=== PATIENT | female | born 1995 | race Caucasian/White ===

== ENCOUNTER → 2018-08-08 | Outpatient (CLI) | payer OTHER ==
[2018-08-08 08:49] LABS: HCT 34.4 % (34.0-46.0); HGB 11.2 gm/dL (11.4-16.0); MCH 29.7 pg (25.0-35.0); MCHC 32.7 g/dL (31.0-37.0); MCV 90.7 fL (80.0-100.0); Mean Platelet Volume 7.2; Platelet Count 243 k/uL (150-450); RBC 3.79 m/uL (3.80-5.40); RDW 12.9 % (11.5-15.5); WBC 13.8 k/uL (3.8-10.6)
== END | disposition home or self-care (01) ==
LOC: LABWHC1 07:17
PROVIDERS: ATTEND Obstetrics & Gynecology
DX: Z34.82 Encounter for supervision of other normal pregnancy, second trimester (principal)
CPT/HCPCS: 36415; 82950; 85027

== ENCOUNTER 2018-11-12 06:00 | Inpatient (IN) | payer OTHER ==
[2018-11-12] MEDS ORDERED: LIDOCAINE 0.5% (PF) 5 MG/ML (50 ML SDV) SQ PRN (07:17)
[2018-11-12] MEDS ORDERED: OXYTOCIN 10 UNIT/ML 1 ML VIAL IM PRN (07:17)
[2018-11-12] MEDS ORDERED: METHYLERGONOVINE 0.2 MG/ML 1 ML AMP IM PRN (07:17)
[2018-11-12] MEDS ORDERED: TERBUTALINE 1 MG/ML VIAL SQ PRN (07:17)
[2018-11-12] MEDS ORDERED: CARBOPROST TROMETHAMINE 250 MCG/ML 1 ML AMP IM PRN (07:17)
[2018-11-12] MEDS ORDERED: OXYTOCIN 30 UNITS/500 ML NS 30 UNIT in SALINE 1 500ML.BAG IV SCH (07:30)
[2018-11-12 07:33] LABS: Basophils # (A) 0.1 k/uL (0-0.2); Basophils % (A) 1 %; Eosinophils # (A) 0.2 k/uL (0-0.7); Eosinophils % (A) 1 %; HCT 34.8 % (34.0-46.0); HGB 11.7 gm/dL (11.4-16.0); Lymphocytes # (A) 2.5 k/uL (1.0-4.8); Lymphocytes % (A) 21 %; MCHC 33.5 g/dL (31.0-37.0); MCV 83.7 fL (80.0-100.0); Mean Platelet Volume 7.4; Monocytes # (A) 0.6 k/uL (0-1.0); Monocytes % (A) 5 %; Neutrophils # (A) 8.1 k/uL (1.3-7.7); Neutrophils % (A) 69 %; Platelet Count 253 k/uL (150-450); RBC 4.16 m/uL (3.80-5.40); RDW 13.6 % (11.5-15.5); WBC 11.7 k/uL (3.8-10.6)
[2018-11-12] MEDS: LACTATED RINGERS 1,000 ML IV SCH ×2 (07:34→14:10)
[2018-11-12 07:54] VITALS: BMI 36.0
[2018-11-12] MEDS ORDERED: BUTORPHANOL 1 MG/ML 1 ML VIAL IV PRN (16:01)
[2018-11-12] MEDS ORDERED: CITRIC ACID-SODIUM CITRATE 15 ML CUP PO ONE (21:04)
[2018-11-12] MEDS ORDERED: ONDANSETRON 4 MG/2 ML VIAL ONE (21:21)
[2018-11-12] MEDS ORDERED: MORPHINE SULFATE (PF) 0.3 MG/0.3 ML SYR ONE (21:21)
[2018-11-12] MEDS ORDERED: OXYTOCIN 10 UNIT/ML 1 ML VIAL ONE (21:21)
[2018-11-12] MEDS ORDERED: KETOROLAC 30 MG/ML 1 ML VIAL ONE (21:21)
[2018-11-12] MEDS ORDERED: ePHEDrine SULFATE/0.9% NACL/PF 50 MG/5 ML SYRINGE IV ONE (21:21)
[2018-11-12] MEDS ORDERED: MIDAZOLAM 2 MG/2 ML VIAL ONE (21:21)
[2018-11-12] MEDS ORDERED: ACETAMINOPHEN TAB 325 MG TAB PO PRN (22:09)
[2018-11-12] MEDS ORDERED: diphenhydrAMINE 50 MG CAP PO PRN (22:09)
[2018-11-12] MEDS ORDERED: NALOXONE 0.4 MG/ML 1 ML VIAL IV PRN (22:09)
[2018-11-12] MEDS ORDERED: ONDANSETRON 4 MG/2 ML VIAL IVP PRN (22:09)
[2018-11-12] MEDS ORDERED: diphenhydrAMINE 50 MG/ML 1 ML VIAL IVP PRN ×2 (22:09)
[2018-11-12] MEDS ORDERED: KETOROLAC 30 MG/ML 1 ML VIAL IVP PRN (22:09)
[2018-11-12] MEDS ORDERED: diphenhydrAMINE 25 MG CAP PO PRN (22:09)
[2018-11-12] MEDS ORDERED: METOCLOPRAMIDE 5 MG/ML 2 ML VIAL IVP PRN (22:09)
[2018-11-12] MEDS ORDERED: ZOLPIDEM 5 MG TAB PO PRN (22:09)
--- NOTE | 2018-11-12 22:13 | P.HPOB ---
History of Present Illness H&P Date: 11/12/18 Chief Complaint: Intrauterine at term: Induction of labor Carmen is a 22-year-old at 39 weeks 6 days' gestation arise for induction of labor. Her Precis course was generally unremarkable and she was feeling well at this time. Pertinent labs include O+ blood type Rh generally was negative, rubella was immune, hepatitis B surface antigen and RPR were both negative. Group B strep was also negative. On physical exam vital signs are stable and afebrile. Heart regular, lungs clear, extremities without pain. Abdomen soft gravid uterus is noted. Edward 1 tracing is noted. She is dilated to approximately 2 cm 80% effaced -2 station artificial rupture membranes was performed and clear fluid is noted. Assessment intrauterine term. Plan expect spontaneous vaginal delivery. Past Medical History Past Medical History: No Reported History History of Any Multi-Drug Resistant Organisms: None Reported Past Surgical History: No Surgical Hx Reported Past Anesthesia/Blood Transfusion Reactions: No Reported Reaction Past Psychological History: No Psychological Hx Reported Smoking Status: Current every day smoker Past Alcohol Use History: None Reported Past Drug Use History: None Reported - Past Family History Father Family Medical History: Diabetes Mellitus Medications and Allergies Home Medications Medication Instructions Recorded Confirmed Type No Known Home Medications 10/23/15 11/12/18 History Allergies Allergy/AdvReac Type Severity Reaction Status Date / Time No Known Allergies Allergy Verified 11/12/18 07:16 Exam Osteopathic Statement: *. No significant issues noted on an osteopathic structural exam other than those noted in the History and Physical/Consult. Vital Signs Temp Pulse Resp BP Pulse Ox 11/12/18 07:06 97.0 F L 94 16 136/84 98 Intake and Output 11/12/18 11/12/18 11/12/18 06:59 14:59 22:59 Intake Total 1000 Balance 1000 Intake: Intake, IV Titration 1000 Amount Lactated Ringers 1,000 ml 1000 @ 125 mls/hr IV .Q8H TIFFANY Rx#:[id number] Other: # Voids 3 Weight 95.254 kg Results Result Diagrams: 11/12/18 07:12 Abnormal Lab Results - Last 24 Hours (Table) 11/12/18 Range/Units 07:12 WBC 11.7 H (3.8-10.6) k/uL Neutrophils # 8.1 H (1.3-7.7) k/uL
--- NOTE | 2018-11-12 22:20 | P.OP ---
Date of Procedure: 11/12/18 Preoperative Diagnosis: Intrauterine at term: Failure to descend Postoperative Diagnosis: Same with asynclitic presentation right occiput transverse Procedure(s) Performed: Primary low transverse section Anesthesia: spinal Surgeon: Jean Carlos Canseco Sales Coach #1: Kari Short Estimated Blood Loss (ml): 1,000 IV fluids (ml): 1,000 Urine output (ml): 200 Pathology: none sent Condition: stable Disposition: floor Operative Findings: Due to failure of descent and palpated asynclitism, a section has been ordered. Risks/benefits/alternatives to this procedure were discussed with the patient in detail and did include but were not limited to bleeding and infection, damage to bladder or bowel, vascular injuries, nerve injuries, ureteral damage. Female scores of 9 and 9 at one and 5 minutes Sherman and weight was 6 lbs. 6 oz. Description of Procedure: Patient was taken to the operating suite where a spinal anesthetic was found be adequate. She was prepped and draped in normal sterile fashion and placed in dorsal supine position with leftward tilt. Initially a Pfannenstiel skin incision was made and this incision was then carried through to underlying layer of the fascia was second knife. Fascia was then nicked in the midline and this opening was extended laterally with Luo scissors. Superior and inferior aspect of this incision were then grasped tented up and bluntly and sharply dissected off the rectus muscles. Rectus muscles were then in the midline and blunt dissection the peritoneum was performed. This opening was then extended superiorly and inferiorly with good visualization of both bowel bladder. Bladder blade was then placed and bladder flap identified and entered with Metzenbaum scissors. This opening was then extended across face uterus with Metzenbaum scissors. Bladder was then bluntly dissected out of the operative field. Knife was then used to incise uterus this opening was fully developed with a hemostat and then extended bluntly. Head was then atraumatically delivered from right occiput transverse position and slightly asynclitic. Once head was delivered mouth nares were bulb suctioned and the shoulders were easily delivered followed by the remainder the baby. Umbilical cord was then clamped cut usual fashion nursery personnel was present to assume care. Placenta was then delivered intact and Pitocin was added to the IV. Uterus was then exteriorized cleared of clots and debris and closed in 2 layers with 0 Vicryl suture. It was noted that during the initial closure there was bleeding from a venous sinus along the lateral left border of the uterus significant probably 600 mL of blood loss occurred from this opening initially [id number] sutures were attempted to control the bleeding we were able slow down significantly and then added pressure and then a running stitch that was finally able to go underneath and close off the sinus. There was approximately 4.5 cm hematoma in the posterior broad ligament this was monitored as well and did not appear to be enlarging. Once hemostasis was felt to be obtained in that area FloSeal was used over the top to gain excellent control over any bleeding from the venous sinus. The area was monitored for approximately 5 minutes and no further bleeding is noted during this time and no expansion of the hematoma was noted. Uterus was then reinserted the abdomen following suctioning of the posterior cul-de-sac. Again another 2 minutes was done monitoring the area reevaluation did not show any bleeding from the venous sinus area. Peritoneal layer was then closed with 3-0 Vicryl and just prior to finishing the closure another look was done at that venous sinus and no bleeding is noted. Once this was completed 0 Vicryl suture was used to close the fascial layer. One layer of 3-0 Vicryl was placed in deep subcuticular tissues reapproximate the skin and close space. Skin was then closed with 3-0 Vicryl subcuticular.
[2018-11-13 07:58] LABS: Basophils # (A) 0.1 k/uL (0-0.2); Basophils % (A) 1 %; Eosinophils # (A) 0.1 k/uL (0-0.7); Eosinophils % (A) 0 %; HCT 29.3 % (34.0-46.0); HGB 9.5 gm/dL (11.4-16.0); Lymphocytes # (A) 1.9 k/uL (1.0-4.8); Lymphocytes % (A) 10 %; MCH 27.5 pg (25.0-35.0); MCHC 32.5 g/dL (31.0-37.0); MCV 84.5 fL (80.0-100.0); Monocytes # (A) 0.8 k/uL (0-1.0); Monocytes % (A) 4 %; Neutrophils # (A) 15.9 k/uL (1.3-7.7); Neutrophils % (A) 84 %; Platelet Count 248 k/uL (150-450); RBC 3.47 m/uL (3.80-5.40); RDW 13.7 % (11.5-15.5)
--- NOTE | 2018-11-13 08:46 | P.PNOBGPC ---
Subjective - Subjective Principal diagnosis: Postop day 1 Interval history: Overall doing very well. We'll remove Butcher catheter and trying to ambulate later this morning. Clear yellow urine is noted in the catheter at this time. She voices no complaints. Hemoglobin was 9.5 this morning. Vital signs are stable and afebrile. Patient reports: Reports appetite normal : doing well Objective - Vital Signs Latest vital signs: Vital Signs Temp Pulse Resp BP Pulse Ox 11/13/18 08:00 98.1 F 65 16 104/47 11/13/18 04:00 98.4 F 70 16 114/70 98 11/13/18 00:23 98.4 F 76 16 115/60 98 11/12/18 23:53 66 16 114/59 98 11/12/18 23:23 16 117/59 98 11/12/18 23:08 98.5 F 86 16 118/59 11/12/18 22:53 75 16 118/55 98 11/12/18 22:38 68 18 110/55 98 11/12/18 22:23 98.4 F 78 18 134/60 96 Intake and Output 11/12/18 11/13/18 11/13/18 22:59 06:59 14:59 Output Total 400 Balance -400 Output: Urine 400 Other: # Voids 3 - Exam Lungs: bilateral: normal Chest: Normal S1, Normal S2 Extremities: Present: normal Abdomen: Present: normal appearance, soft. Absent: distention, tenderness Incision: Present: normal, dry, intact Uterus: Present: normal, firm - Labs Labs: Abnormal Lab Results - Last 24 Hours (Table) 11/13/18 Range/Units 06:32 WBC 19.0 H (3.8-10.6) k/uL RBC 3.47 L (3.80-5.40) m/uL Hgb 9.5 L D (11.4-16.0) gm/dL Hct 29.3 L (34.0-46.0) % Neutrophils # 15.9 H (1.3-7.7) k/uL
[2018-11-13] MEDS: SENNOSIDES-DOCUSATE SODIUM 1 EACH TAB PO SCH ×2 (09:36→19:33)
--- NOTE | 2018-11-13 13:32 | P.PN ---
Subjective Progress Note Date: 11/13/18 Patient was given intrathecal Duramorph on 11/12/2018 for . This morning, vital signs are stable. The patient denies itching, nausea, vomiting, urinary retention, excessive sedation, respiratory depression, or headache. Patient endorses mild back pain from needle placement but also denies new-onset fever, weakness, or bowel/bladder incontinence. Her pain score is: 0 Pain medications per primary service; please call back with any further questions. Sunny Huber MD Objective - Vital Signs Vital signs: Vital Signs Temp 98 F 11/13/18 12:00 Pulse 65 11/13/18 12:00 Resp 16 11/13/18 12:00 BP 96/53 11/13/18 12:00 Pulse Ox 98 11/13/18 04:00 Intake & Output 11/12/18 11/13/18 11/13/18 18:59 06:59 18:59 Intake Total 1000 Output Total 400 2400 Balance 1000 -400 -2400 Weight 95.254 kg Intake: Intake, IV Titration 1000 Amount Lactated Ringers 1,000 ml 1000 @ 125 mls/hr IV .Q8H TIFFANY Rx#:[id number] Output: Urine 400 2400 Uretheral (Butcher) 1200 Other 0 Other: # Voids 3 3 0 - Labs CBC & Chem 7: 11/13/18 06:32 Labs: Abnormal Lab Results - Last 24 Hours (Table) 11/13/18 Range/Units 06:32 WBC 19.0 H (3.8-10.6) k/uL RBC 3.47 L (3.80-5.40) m/uL Hgb 9.5 L D (11.4-16.0) gm/dL Hct 29.3 L (34.0-46.0) % Neutrophils # 15.9 H (1.3-7.7) k/uL
[2018-11-13] MEDS: IBUPROFEN 600 MG TAB PO PRN (19:33)
[2018-11-14] MEDS: HYDROcodone/APAP 7.5-325MG 1 EACH TAB PO PRN (00:41)
[2018-11-14] MEDS: LACTATED RINGERS 1,000 ML IV SCH ×2 (02:08→02:09)
[2018-11-14] MEDS: IBUPROFEN 600 MG TAB PO PRN ×3 (06:14→21:17)
[2018-11-14] MEDS: SENNOSIDES-DOCUSATE SODIUM 1 EACH TAB PO SCH ×2 (08:18→20:34)
--- NOTE | 2018-11-14 08:34 | P.PNOBGPC ---
Subjective - Subjective Principal diagnosis: Status post section postoperative day #2 Interval history: Patient is doing okay. She still has not passed any flatus yet. She is uncomfortable but feels like she could have a bowel movement any time. Pain is fairly well controlled with her pain medications. She is urinating without difficulty. Lochia is minimal. Baby is in the nursery on a bili blanket. Patient reports: Reports appetite normal, Reports voiding normally, Reports pain well controlled, Reports ambulating normally [place]: doing well Objective - Vital Signs Latest vital signs: Vital Signs Temp Pulse Resp BP 11/14/18 00:00 98.1 F 66 16 99/54 11/13/18 20:00 97.9 F 85 16 116/67 11/13/18 15:50 98.3 F 73 16 118/62 11/13/18 12:00 98 F 65 16 96/53 Intake and Output 11/13/18 11/14/18 11/14/18 22:59 06:59 14:59 Intake Total 500 Output Total 500 Balance -500 500 Intake: Oral 500 Output: Urine 500 Other: # Voids 1 1 - Exam Extremities: Present: normal. Absent: tenderness Abdomen: Present: normal appearance, soft (Faint bowel sounds 4). Absent: distention, tenderness Incision: Present: normal, dry, intact. Absent: erythematous Uterus: Present: normal, firm. Absent: tenderness Assessment and Plan Assessment: Status post section postoperative day #2 Plan: Patient is encouraged to ambulate more. Will continue was still softeners. Advised to slowly advance diet after flatus occurs.
[2018-11-14] MEDS: SIMETHICONE 80 MG CHEWABLE PO SCH (15:58)
[2018-11-15] MEDS: HYDROcodone/APAP 7.5-325MG 1 EACH TAB PO PRN (00:24)
[2018-11-15 00:58] VITALS: RESP 16
[2018-11-15] MEDS: SIMETHICONE 80 MG CHEWABLE PO SCH ×3 (00:58→09:38)
[2018-11-15] MEDS: IBUPROFEN 600 MG TAB PO PRN (07:50)
[2018-11-15 07:57] VITALS: BP 125/78; PULSE 70; TEMP 98.1
[2018-11-15] MEDS: SENNOSIDES-DOCUSATE SODIUM 1 EACH TAB PO SCH (07:57)
--- NOTE | 2018-11-15 13:12 | P.DS ---
Providers Date of admission: 11/12/18 06:58 Expected date of discharge: 11/15/18 Attending physician: Jean Carlos Canseco Primary care physician: Stated None - Discharge Diagnosis(es) (1) Status post primary low transverse section Current Visit: Yes Status: Acute Hospital Course: Pt presented for induction of labor. She underwent a primary low transverse c- section. Her po course was uncomplicated. She is ambulating and voiding without difficulty. Her incision is C/D/I. Tolerating reg diet and passing flatus. Denies N/V, F/C, CP, SOB, calf pain. She is discharged POD #3 in stable condition to follow up with Dr Canseco in 1 week. Plan - Discharge Summary New Discharge Prescriptions: New Ibuprofen [Motrin] 600 mg PO Q6HR PRN #30 tab PRN Reason: Mild Pain Or Fever >= 100.5 HYDROcodone/APAP 7.5-325MG [[place] 7.5-325] 1 each PO Q6H PRN #12 tab PRN Reason: Severe Pain Discharge Medication List HYDROcodone/APAP 7.5-325MG [[place] 7.5-325] 1 each PO Q6H PRN #12 tab 11/15/18 [Rx] Ibuprofen [Motrin] 600 mg PO Q6HR PRN #30 tab 11/15/18 [Rx] Follow up Appointment(s)/Referral(s): Jean Carlos Canseco DO [Doctor of Osteopathic Medicine] - 1 Week Discharge Disposition: HOME SELF-CARE
== END 2018-11-15 13:45 | disposition home or self-care (01) | DRG 788 ==
LOC: 4FBP 06:58
PROVIDERS: ADMIT Obstetrics & Gynecology; ATTEND Obstetrics & Gynecology
PROC: 10D00Z1 Extraction of Products of Conception, Low, Open Approach (ICD-10-PCS; 2018-11-12)
PROC: 10907ZC Drainage of Amniotic Fluid, Therapeutic from Products of Conception, Via Natural or Artificial Opening (ICD-10-PCS; principal; 2018-11-12 21:48)
DX: O64.8XX0 Obstructed labor due to other malposition and malpresentation, not applicable or unspecified (principal); Z3A.39 39 weeks gestation of pregnancy; Z37.0 Single live birth; F17.200 Nicotine dependence, unspecified, uncomplicated; O99.334 Smoking (tobacco) complicating childbirth; Z83.3 Family history of diabetes mellitus
CPT/HCPCS: 85025; 86850; 86900; 86901

== ENCOUNTER 2019-03-30 19:33 | Emergency (ER) | payer OTHER ==
[2019-03-30 19:38] VITALS: BP 136/77; PULSE 96; RESP 16; TEMP 98.3
[2019-03-30] MEDS ORDERED: ACETAMINOPHEN TAB 500 MG TAB PO STA (20:06)
--- NOTE | 2019-03-30 20:07 | ED ---
General Adult HPI - General Source: patient, RN notes reviewed Mode of arrival: ambulatory Limitations: no limitations <Matthew Worthington - Last Filed: 03/30/19 20:10> <Carey Padilla - Last Filed: 04/01/19 22:33> - General Chief complaint: ENT Stated complaint: Ear pain Time Seen by Provider: 03/30/19 19:38 - History of Present Illness Initial comments: 23-year-old female presents to the emergency department for a chief complaint of ear pain. Patient states that earlier today she had pain in her right ear. St ates that for about the days that has gone away but now she has pain in her left ear. Patient states she has a moderate amount of congestion which is worse lately in the past couple weeks. States she has allergies so she is always a little bit congested. Patient does not take anything for this congestion or her allergies. Patient hasn't had any fevers or chills. No cough. Denies headache or neck stiffness.Patient has no other complaints at this time including shortness of breath, chest pain, abdominal pain, nausea or vomiting, headache, or visual changes. (Matthew Worthington) - Related Data Previous Rx's Medication Instructions Recorded HYDROcodone/APAP 7.5-325MG [[place] 1 each PO Q6H PRN #12 tab 11/15/18 7.5-325] Ibuprofen [Motrin] 600 mg PO Q6HR PRN #30 tab 11/15/18 Fluticasone Nasal [place] [Flonase 1 spray EA NOSTRIL DAILY 7 Days #1 03/30/19 Nasal [place]] bottle Loratadine [Claritin] 10 mg PO DAILY #20 tab 03/30/19 Allergies Allergy/AdvReac Type Severity Reaction Status Date / Time No Known Allergies Allergy Verified 03/30/19 19:38 Review of Systems ROS Other: All systems not noted in ROS Statement are negative. <Matthew Worthington - Last Filed: 03/30/19 20:10> ROS Other: All systems not noted in ROS Statement are negative. <Carey Padilla - Last Filed: 04/01/19 22:33> ROS Statement: Those systems with pertinent positive or pertinent negative responses have been documented in the HPI. Past Medical History Past Medical History: No Reported History History of Any Multi-Drug Resistant Organisms: None Reported Past Surgical History: Section Past Anesthesia/Blood Transfusion Reactions: No Reported Reaction Past Psychological History: No Psychological Hx Reported Smoking Status: Current every day smoker Past Alcohol Use History: None Reported Past Drug Use History: None Reported - Past Family History Father Family Medical History: Diabetes Mellitus <Matthew Worthington - Last Filed: 03/30/19 20:10> General Exam Limitations: no limitations General appearance: alert, in no apparent distress Head exam: Present: atraumatic Eye exam: Present: normal appearance, PERRL, EOMI. Absent: scleral icterus, conjunctival injection, periorbital swelling ENT exam: Present: normal exam, normal oropharynx, mucous membranes moist, normal external ear exam. Absent: TM's normal bilaterally (Right tympanic membrane is within normal limits. However left tympanic membrane has small bubbles noted with fluid behind the TM consistent with a serous otitis) Neck exam: Present: normal inspection, full ROM. Absent: tenderness, meningismus, lymphadenopathy Respiratory exam: Present: normal lung sounds bilaterally. Absent: respiratory distress, wheezes, rales, rhonchi, stridor Cardiovascular Exam: Present: regular rate, normal rhythm, normal heart sounds. Absent: systolic murmur, diastolic murmur, rubs, gallop, clicks <Matthew Worthington - Last Filed: 03/30/19 20:10> Course Vital Signs 03/30/19 19:36 Temperature 98.3 F Pulse Rate 96 Respiratory 16 Rate Blood Pressure 136/77 O2 Sat by Pulse 97 Oximetry Medical Decision Making <Matthew Worthington - Last Filed: 03/30/19 20:10> <Carey Padilla - Last Filed: 04/01/19 22:33> - Medical Decision Making 83 year old female presents for ear pain. Patient states the pain is now only in her left ear. On examination patient has findings consistent with serous otitis. No evidence for infection. No erythema or bulging tympanic membranes. His is likely secondary to her ALLERGIES and associated congestion. Patient was started on Claritin and nasal spray. Discussed following up with primary care in 1-2 days and returning if she has any worsening symptoms. (Matthew Worthington) I was available for consultation in the emergency department. The history and physical exam were done by the midlevel provider. I was consulted for this patients care. I reviewed the case with the midlevel provider and based on their presentation of the patient, I agree with the assessment, medical decision making and plan of care as documented. Chart was dictated using [employer] dictation software. Attempts were made to correct any dictation errors however some typographical errors may persist. (Carey Padilla) Disposition Is patient prescribed a controlled substance at d/c from ED?: No Time of Disposition: 20:06 <Matthew Worthington - Last Filed: 03/30/19 20:10> <Carey Padilla - Last Filed: 04/01/19 22:33> Clinical Impression: Serous otitis media, Eustachian tube dysfunction Disposition: HOME SELF-CARE Condition: Good Instructions (If sedation given, give patient instructions): Earache (ED) Additional Instructions: Please use nasal spray as directed. Take Claritin as well to help with congestion and ear pain. Take Motrin and Tylenol for pain. Follow-up with primary care 1-2 days. Return here to the emergency department if you have any worsening symptoms or fevers. Prescriptions: Loratadine [Claritin] 10 mg PO DAILY #20 tab Fluticasone Nasal [place] [Flonase Nasal [place]] 1 spray EA NOSTRIL DAILY 7 Days #1 bottle Referrals: Compa Milan MD [REFERRING] - 1-2 days
== END 2019-03-30 20:23 | disposition home or self-care (01) ==
LOC: EC 19:33
DX: H65.92 Unspecified nonsuppurative otitis media, left ear (principal); H69.82 Other specified disorders of Eustachian tube, left ear; R09.89 Other specified symptoms and signs involving the circulatory and respiratory systems; F17.200 Nicotine dependence, unspecified, uncomplicated
CPT/HCPCS: 99282

== ENCOUNTER 2023-02-07 04:54 | Emergency (ER) | payer OTHER ==
[2023-02-07 05:32] VITALS: BP 136/90; PULSE 74; RESP 18; TEMP 98.3
--- NOTE | 2023-02-07 06:10 | ED ---
General Adult HPI - General Chief complaint: ENT Stated complaint: Left Ear ache Time Seen by Provider: 02/07/23 04:56 Source: patient, RN notes reviewed, old records reviewed Mode of arrival: ambulatory Limitations: no limitations - History of Present Illness Initial comments: 27 yo ear pain. Patient states she did have some right-sided ear pain but this resolved and she developed left ear pain over the past 24 hours which was severe. She has some mild upper respiratory symptoms. No fever. - Related Data Previous Rx's Medication Instructions Recorded HYDROcodone/APAP 7.5-325MG [[place] 1 each PO Q6H PRN #12 tab 11/15/18 7.5-325] Ibuprofen [Motrin] 600 mg PO Q6HR PRN #30 tab 11/15/18 Fluticasone Nasal [place] [Flonase 1 spray EA NOSTRIL DAILY 7 Days #1 03/30/19 Nasal [place]] bottle Loratadine [Claritin] 10 mg PO DAILY #20 tab 03/30/19 Amoxic-Pot Clav 875-125Mg 1 tab PO Q12HR 10 Days #20 tab 02/07/23 [Augmentin 875-125] Ibuprofen [Motrin] 600 mg PO Q8HR PRN #24 tab 02/07/23 Allergies Allergy/AdvReac Type Severity Reaction Status Date / Time No Known Allergies Allergy Verified 02/07/23 05:13 Review of Systems ROS Statement: Those systems with pertinent positive or pertinent negative responses have been documented in the HPI. ROS Other: All systems not noted in ROS Statement are negative. Past Medical History Past Medical History: No Reported History History of Any Multi-Drug Resistant Organisms: None Reported Past Surgical History: Section Past Anesthesia/Blood Transfusion Reactions: No Reported Reaction Past Psychological History: No Psychological Hx Reported Smoking Status: Current every day smoker Past Alcohol Use History: Occasional Past Drug Use History: Marijuana - Past Family History Father Family Medical History: Diabetes Mellitus General Exam Limitations: no limitations General appearance: alert, in no apparent distress Head exam: Present: atraumatic Eye exam: Present: normal appearance, PERRL ENT exam: Absent: TM's normal bilaterally (left Tympanic membrane is erythematous and bulging) Respiratory exam: Present: normal lung sounds bilaterally. Absent: respiratory distress Cardiovascular Exam: Present: regular rate, normal rhythm Neurological exam: Present: alert, oriented X3, CN II-XII intact, normal gait Skin exam: Present: warm, dry Course Vital Signs 02/07/23 05:10 Temperature 98.3 F Pulse Rate 74 Respiratory 18 Rate Blood Pressure 136/90 O2 Sat by Pulse 96 Oximetry Medical Decision Making - Medical Decision Making Was pt. sent in by a medical professional or institution (LILI Jurado, HOTEL SECURITY OFFICER, urgent care, hospital, or snf...) When possible be specific @ -No Did you speak to anyone other than the patient for history (EMS, parent, family, police, friend...)? What history was obtained from this source @ -No Did you review nursing and triage notes (agree or disagree)? Why? @ -I reviewed and agree with nursing and triage notes Were old charts reviewed (outside hosp., previous admission, EMS record, old EKG, old radiological studies, urgent care reports/EKG's, snf records)? Report findings @ -No old charts were reviewed Differential Diagnosis (chest pain, altered mental status, abdominal pain women, abdominal pain men, vaginal bleeding, weakness, fever, dyspnea, syncope, headache, dizziness, GI bleed, back pain, seizure, CVA, palpatations, mental health, musculoskeletal)? @ Otitis media, mastoiditis, otitis externa, upper respiratory infection EKG interpreted by me (3pts min.). @ -As above X-rays interpreted by me (1pt min.). @ -None done CT interpreted by me (1pt min.). @ -None done U/S interpreted by me (1pt. min.). @ -None done What testing was considered but not performed or refused? (CT, X-rays, U/S, labs)? Why? @ -None What meds were considered but not given or refused? Why? @ -None Did you discuss the management of the patient with other professionals (professionals i.e. LILI Jurado, HOTEL SECURITY OFFICER, lab, RT, psych nurse, psychologist social, vendor manager, teacher, branch officer, community case manager)? Give summary @ -No Was smoking cessation discussed for >3mins.? @ -No Was critical care preformed (if so, how long)? @ -No Were there social determinants of health that impacted care today? How? (Homelessness, low income, unemployed, alcoholism, drug addiction, transportation, low edu. Level, literacy, decrease access to med. care, prison, rehab)? @ -No Was there de-escalation of care discussed even if they declined (Discuss DNR or withdrawal of care, Hospice)? DNR status @ -No What co-morbidities impacted this encounter? (DM, HTN, Smoking, COPD, CAD, Cancer, CVA, ARF, Chemo, Hep., AIDS, mental health diagnosis, sleep apnea, morbid obesity)? @ -None Was patient admitted / discharged? Hospital course, mention meds given and route, prescriptions, significant lab abnormalities, going to OR and other pertinent info. @ -dc in stable condition, antibiotics and pain medication. Return parameters discussed. Undiagnosed new problem with uncertain prognosis? @ -No Drug Therapy requiring intensive monitoring for toxicity (Heparin, Nitro, Insulin, Cardizem)? @ -No Were any procedures done? @ -No Diagnosis/symptom? @ -Otitis media Acute, or Chronic, or Acute on Chronic? @ acute Uncomplicated (without systemic symptoms) or Complicated (systemic symptoms)? @ -default Side effects of treatment? @ -No Exacerbation, Progression, or Severe Exacerbation? @ -No Poses a threat to life or bodily function? How? (Chest pain, [place], ID, pneumonia, PE, COPD, DKA, ARF, appy, cholecystitis, CVA, Diverticulitis, Homicidal, Suicidal, threat to staff... and all critical care pts) @ -No Disposition Clinical Impression: Otitis media Disposition: HOME SELF-CARE Condition: Fair Instructions (If sedation given, give patient instructions): Earache (ED) Prescriptions: Amoxic-Pot Clav 875-125Mg [[place]mentin 875-125] 1 tab PO Q12HR 10 Days #20 tab Ibuprofen [Motrin] 600 mg PO Q8HR PRN #24 tab PRN Reason: Pain Is patient prescribed a controlled substance at d/c from ED?: No Referrals: David Rivers MD [Primary Care Provider] - 1-2 days Time of Disposition: 06:10
== END 2023-02-07 06:19 | disposition home or self-care (01) ==
LOC: EC 04:54
DX: H66.92 Otitis media, unspecified, left ear (principal); F17.200 Nicotine dependence, unspecified, uncomplicated; F12.90 Cannabis use, unspecified, uncomplicated
CPT/HCPCS: 99282